=== PATIENT | male | born 1975 | race African-American/Black ===

== ENCOUNTER 2020-06-10 16:47 | Inpatient (IN) ==
[2020-06-10] MEDS ORDERED: SEVOFLURANE 1 UNIT/15 MINUTE INH ONE ×3 (18:29→18:59)
[2020-06-10] MEDS ORDERED: LIDOCAINE 2% 5 ML VIAL ONE (18:29)
[2020-06-10] MEDS ORDERED: propofoL 200 MG/20 ML VIAL IV ONE (18:29)
[2020-06-10] MEDS ORDERED: fentaNYL 100 MCG/2 ML VIAL ONE (18:30)
[2020-06-10] MEDS ORDERED: MIDAZOLAM 2 MG/2 ML VIAL ONE (18:30)
[2020-06-10] MEDS ORDERED: LIDOCAINE 1%/EPI INJ 20 ML VIAL ONE (18:31)
[2020-06-10] MEDS ORDERED: BUPIVACAINE 0.5% 50 ML VIAL ONE (18:32)
[2020-06-10] MEDS ORDERED: ONDANSETRON 4 MG/2 ML VIAL IV PRN ×2 (18:37→20:36)
[2020-06-10] MEDS ORDERED: HYDROmorphone 2 MG/1 ML VIAL IV PRN (18:37)
[2020-06-10] MEDS ORDERED: PROMETHAZINE INJ 25 MG in SODIUM CHLORIDE 0.9% 50 ML IV PRN (18:37)
[2020-06-10] MEDS ORDERED: diphenhydrAMINE 50 MG/1 ML VIAL IV PRN (18:37)
[2020-06-10] MEDS ORDERED: MEPERIDINE 50 MG/1 ML VIAL IV PRN (18:42)
[2020-06-10] MEDS ORDERED: VANCOMYCIN 1,000 MG VIAL ONE (19:07)
[2020-06-10] MEDS ORDERED: SODIUM CHLORIDE 0.9% 100 ML IV ONE (19:15)
[2020-06-10] MEDS ORDERED: MORPHINE 4 MG/1 ML VIAL IV PRN (19:17)
[2020-06-10] MEDS ORDERED: DEXTROSE 50% 25 GM/50 ML VIAL IV PRN (19:17)
[2020-06-10] MEDS ORDERED: GLUCAGON 1 MG VIAL IM PRN (19:17)
[2020-06-10] MEDS: HYDROmorphone 2 MG/1 ML VIAL IV PRN ×4 (19:35→19:50)
[2020-06-10] MEDS ORDERED: ALBUTEROL/IPRATROPIUM 3 ML NEB RESP TX ONE ×2 (19:42→19:44)
[2020-06-10] MEDS: ATORVASTATIN 10 MG TABLET PO SCH (21:50)
[2020-06-10] MEDS: PIPERACILLIN/TAZOBACTAM 3,375 MG in SODIUM CHLORIDE 0.9% 100 ML IV SCH (21:50)
[2020-06-10] MEDS: metFORMIN 500 MG TABLET PO SCH (21:50)
[2020-06-10] MEDS: carvediloL 25 MG TABLET PO SCH (21:50)
[2020-06-10] MEDS: DEXTROSE 5% NACL 0.45% 1,000 ML IV SCH (21:51)
[2020-06-10] MEDS: MORPHINE 4 MG/1 ML VIAL IV PRN (22:40)
[2020-06-11] MEDS: DEXTROSE 5% NACL 0.45% 1,000 ML IV SCH (04:49)
[2020-06-11] MEDS: PIPERACILLIN/TAZOBACTAM 3,375 MG in SODIUM CHLORIDE 0.9% 100 ML IV SCH ×3 (05:29→20:30)
[2020-06-11 05:33] LABS: Basophils % 0.2 % (0.0-0.8); Eosinophils # 0.1 10*3/uL (0.0-0.87); Eosinophils % 0.9 % (0.00-10.9); Hemoglobin 11.4 GM/DL (14.0-18.0); Immature Granulocytes % 0.3 %; Immature Granulocytes Absolute 0.05 #; Lymphocytes # 1.5 10*3/uL (1.4-4.0); Mean Corpuscular HGB Conc 31.7 GM/DL (32-36); Mean Corpuscular Volume 98.6 FL (87-102); Mean Platelet Volume 10.6 FL (9.6-12.0); Monocytes % 5.1 % (1.7-12.7); Neutrophils % 83.5 % (38.7-73.9); Platelet Count 220 T/CUMM (130-400); Red Blood Count 3.65 MC/CUMM (3.8-5.5); White Blood Count 14.5 T/CUMM (4-12)
[2020-06-11 05:49] LABS: Calcium 8.6 MG/DL (8.5-10.1); Osmolality,Calculated 279.5 MOS/KG (273-304); Potassium 3.6 MMOL/L (3.5-5.1)
[2020-06-11] MEDS: metFORMIN 500 MG TABLET PO SCH ×4 (08:06→20:31)
[2020-06-11] MEDS: carvediloL 25 MG TABLET PO SCH ×2 (08:06→20:28)
[2020-06-11] MEDS: FUROSEMIDE 40 MG TABLET PO SCH (08:06)
[2020-06-11] MEDS: amLODIPine 10 MG TABLET PO SCH (08:06)
[2020-06-11] MEDS: lisinopriL 10 MG TABLET PO SCH (08:06)
[2020-06-11] MEDS: hydroCHLOROthiazide 12.5 MG CAPSULE PO SCH (08:06)
[2020-06-11] MEDS: MORPHINE 4 MG/1 ML VIAL IV PRN (08:06)
[2020-06-11] MEDS: POTASSIUM CHLORIDE 20 MEQ TABLET PO SCH (08:09)
[2020-06-11] MEDS ORDERED: GLUCAGON 1 MG VIAL IM PRN ×2 (08:23→11:29)
[2020-06-11] MEDS ORDERED: DEXTROSE 50% 25 GM/50 ML VIAL IV PRN ×2 (08:23→11:29)
[2020-06-11] MEDS ORDERED: hydrALAZINE 20 MG/1 ML VIAL IV PRN (08:26)
[2020-06-11] MEDS ORDERED: PANTOPRAZOLE 40 MG TABLET PO SCH (09:00)
[2020-06-11 09:29] LABS: Risk Ratio 2.47; VLDL CHOLESTEROL 34.6 MG/DL
[2020-06-11] MEDS: INSULIN GLARGINE 100 UNIT/ML SUBCUT SCH ×2 (12:26→20:29)
[2020-06-11] MEDS: INSULIN REGULAR 100 UNIT/ML SUBCUT SCH ×3 (12:28→20:29)
[2020-06-11] MEDS: VANCOMYCIN INJ 2,000 MG in SODIUM CHLORIDE 0.9% 500 ML IV SCH (16:50)
[2020-06-11] MEDS: ATORVASTATIN 10 MG TABLET PO SCH (20:28)
[2020-06-11] MEDS: ENOXAPARIN 40 MG/0.4 ML SYRINGE SUBCUT SCH (20:29)
[2020-06-12] MEDS: VANCOMYCIN INJ 2,000 MG in SODIUM CHLORIDE 0.9% 500 ML IV SCH ×2 (02:38→12:47)
[2020-06-12] MEDS: PIPERACILLIN/TAZOBACTAM 3,375 MG in SODIUM CHLORIDE 0.9% 100 ML IV SCH ×3 (05:49→21:02)
[2020-06-12] MEDS: DEXTROSE 5% NACL 0.45% 1,000 ML IV SCH ×3 (07:12→09:59)
[2020-06-12] MEDS: hydroCHLOROthiazide 12.5 MG CAPSULE PO SCH (09:06)
[2020-06-12] MEDS: carvediloL 25 MG TABLET PO SCH ×2 (09:06→21:00)
[2020-06-12] MEDS: amLODIPine 10 MG TABLET PO SCH (09:07)
[2020-06-12] MEDS: INSULIN REGULAR 100 UNIT/ML SUBCUT SCH ×4 (09:07→21:01)
[2020-06-12] MEDS: FUROSEMIDE 40 MG TABLET PO SCH (09:07)
[2020-06-12] MEDS: POTASSIUM CHLORIDE 20 MEQ TABLET PO SCH (09:07)
[2020-06-12] MEDS: lisinopriL 10 MG TABLET PO SCH (09:07)
[2020-06-12] MEDS: INSULIN GLARGINE 100 UNIT/ML SUBCUT SCH (09:08)
[2020-06-12] MEDS: MORPHINE 4 MG/1 ML VIAL IV PRN ×2 (09:15→22:31)
[2020-06-12 09:40] LABS: Basophils % 0.2 % (0.0-0.8); Eosinophils # 0.2 10*3/uL (0.0-0.87); Eosinophils % 2.5 % (0.00-10.9); Hematocrit 36.9 VOL% (42.0-52.0); Hemoglobin 11.5 GM/DL (14.0-18.0); Immature Granulocytes % 0.3 %; Immature Granulocytes Absolute 0.03 #; Lymphocytes # 1.1 10*3/uL (1.4-4.0); Lymphocytes % 12.1 % (21.2-54.2); Mean Corpuscular HGB Conc 31.2 GM/DL (32-36); Mean Corpuscular Volume 99.2 FL (87-102); Monocytes % 5.2 % (1.7-12.7); Neutrophils % 79.7 % (38.7-73.9); Platelet Count 237 T/CUMM (130-400); Red Blood Count 3.72 MC/CUMM (3.8-5.5); Red Cell Distribution Width 12.9 % (9.3-17.3); White Blood Count 8.8 T/CUMM (4-12)
[2020-06-12 10:02] LABS: Albumin 2.3 G/DL (3.4-5.0); Bilirubin,Total 0.4 MG/DL (0.2-1.0); Calcium 8.7 MG/DL (8.5-10.1); Potassium 3.6 MMOL/L (3.5-5.1); Total Protein 6.6 G/DL (6.4-8.2)
[2020-06-12] MEDS: diphenhydrAMINE CAP 25 MG CAPSULE PO PRN ×2 (12:46→22:27)
[2020-06-12] MEDS ORDERED: INSULIN GLARGINE 100 UNIT/ML SUBCUT SCH (21:00)
[2020-06-12] MEDS: ATORVASTATIN 10 MG TABLET PO SCH (21:00)
[2020-06-12] MEDS: ENOXAPARIN 40 MG/0.4 ML SYRINGE SUBCUT SCH (21:01)
[2020-06-13] MEDS: VANCOMYCIN INJ 2,000 MG in SODIUM CHLORIDE 0.9% 500 ML IV SCH (01:29)
[2020-06-13] MEDS: DEXTROSE 5% NACL 0.45% 1,000 ML IV SCH ×3 (04:44→12:16)
[2020-06-13] MEDS: PIPERACILLIN/TAZOBACTAM 3,375 MG in SODIUM CHLORIDE 0.9% 100 ML IV SCH (04:46)
[2020-06-13] MEDS: amLODIPine 10 MG TABLET PO SCH (08:03)
[2020-06-13] MEDS: FUROSEMIDE 40 MG TABLET PO SCH (08:03)
[2020-06-13] MEDS: INSULIN REGULAR 100 UNIT/ML SUBCUT SCH ×2 (08:03→12:22)
[2020-06-13] MEDS: hydroCHLOROthiazide 12.5 MG CAPSULE PO SCH (08:03)
[2020-06-13] MEDS: POTASSIUM CHLORIDE 20 MEQ TABLET PO SCH (08:03)
[2020-06-13] MEDS: carvediloL 25 MG TABLET PO SCH (08:04)
[2020-06-13] MEDS: lisinopriL 10 MG TABLET PO SCH (08:04)
[2020-06-13 11:41] VITALS: BP 118/73
[2020-06-13] MEDS ORDERED: LEVOFLOXACIN 750 MG TABLET PO SCH (13:00)
[2020-06-13] MEDS ORDERED: INSULIN GLARGINE 100 UNIT/ML SUBCUT SCH (21:00)
== END 2020-06-13 13:33 | disposition home or self-care (01) | DRG 988 ==
LOC: N.ED 16:47 → N.EDINP 16:47 → N.5E 18:27
PROVIDERS: ADMIT Surgery; ATTEND Surgery